=== PATIENT | female | born 1945 | race Caucasian/White ===

== ENCOUNTER 2021-01-17 14:00 | Outpatient (CLI) | payer BC ==
[2021-01-25] MEDS ORDERED: ASPI-992 PO (08:01)
== END 2021-01-17 23:59 | disposition home or self-care (01) ==
LOC: LAB 14:00
PROVIDERS: ATTEND Specialist
DX: Z01.812 Encounter for preprocedural laboratory examination (principal); Z20.822 Contact with and (suspected) exposure to COVID-19
CPT/HCPCS: C9803; U0003

== ENCOUNTER 2021-01-22 05:35 | Inpatient (IN) | payer BC, OTHER ==
[~2021-01-22] VITALS: Ht 165.1 cm; Wt 74.4 kg
[2021-01-22 06:52] LABS: BASOPHILS % (AUTO) 0.6 % (0.0-2.0); EOSINOPHILS % (AUTO) 3.7 % (0.0-6.0); HEMATOCRIT 41 % (33-45); HEMOGLOBIN 14.1 g/dL (11.5-14.8); LYMPHOCYTES # (AUTO) 1.5 K/uL (0.8-4.8); LYMPHOCYTES % (AUTO) 20.3 % (20.0-44.0); MEAN CORPUSCULAR HGB CONC 34 g/dl (31.0-36.0); MEAN CORPUSCULAR VOLUME 90 fL (82-100); MONOCYTES # (AUTO) 0.7 K/uL (0.1-1.30); MONOCYTES % (AUTO) 8.8 % (2.0-12.0); NEUTROPHILS % (AUTO) 66.6 % (43.0-81.0); PLATELET COUNT (AUTO) 272 K/uL (150-450); RED BLOOD CELL COUNT(AUTO) 4.58 MIL/uL (4.0-5.2); WHITE BLOOD COUNT (AUTO) 7.5 K/uL (4.3-11.0)
[2021-01-22] MEDS ORDERED: ROCURONIUM BROMIDE 50 MG/5 ML ONE (06:56)
[2021-01-22] MEDS ORDERED: HYDROMORPHONE INJ 2 MG/ML DISP.SYRIN ONE (06:56)
[2021-01-22] MEDS ORDERED: BUPIVACAINE 0.5 % PF 150 MG/30 ML VIAL ONE (07:12)
[2021-01-22] MEDS ORDERED: POLYMYXIN B SULFATE 500,000 UNITS ONE (07:12)
[2021-01-22 07:19] LABS: ALBUMIN 3.5 g/dL (3.4-5.0); BILIRUBIN,TOTAL 0.6 mg/dL (0.2-1.0); CALCIUM, SERUM 8.4 mg/dL (8.5-10.1); CREATININE 1.2 mg/dL (0.6-1.3); POTASSIUM 3.9 mmol/L (3.5-5.1); TOTAL PROTEIN, SERUM 7.3 g/dL (6.4-8.2)
[2021-01-22 08:00] LABS: BILIRUBIN,URINE NEGATIVE (NEGATIVE); COLOR,URINE YELLOW (YELLOW); LEUKOCYTE ESTERASE ,URINE SMALL (NEGATIVE); NITRITE, URINE NEGATIVE (NEGATIVE); PROTEIN,URINE NEGATIVE (NEGATIVE); UGLUCOSE NEGATIVE (NEGATIVE); UROBILINOGEN,URINE 0.2 EU/dL (0.2)
[2021-01-22] MEDS ORDERED: TRANEXAMIC ACID 3,000 MG in SODIUM CHLORIDE IRRIG SOLUTION 70 ML IR ONE (08:00)
[2021-01-22] MEDS ORDERED: HYDROMORPHONE 1 MG/1 ML DISP.SYRIN ONE ×2 (08:58→09:23)
[2021-01-22 09:33] LABS: BACTERIA,URINE Few /HPF (None Seen); SQUAMOUS EPITHELIAL CELL,UR Few /HPF (None Seen)
[2021-01-22 09:34] LABS: CALCIUM OXALATE CRYSTALS,UR Moderate /HPF (None Seen)
[2021-01-22] MEDS ORDERED: MAG HYDROX/AL HYDROX/SIMETH 30 ML UDC PO PRN ×2 (10:00→11:30)
[2021-01-22] MEDS ORDERED: MAGNESIUM HYDROXIDE 30 ML UDC PO PRN ×2 (10:00→11:30)
[2021-01-22] MEDS ORDERED: ONDANSETRON HCL/PF 4 MG/2 ML VIAL IV PRN (10:00)
[2021-01-22] MEDS ORDERED: HYDROMORPHONE 1 MG/1 ML DISP.SYRIN SQ PRN (10:00)
[2021-01-22] MEDS ORDERED: CLONIDINE HCL 0.1 MG TABLET PO PRN (10:00)
[2021-01-22] MEDS ORDERED: diphenhydrAMINE HCL 25 MG CAPSULE PO PRN (10:00)
--- NOTE | 2021-01-22 10:20 | NUR ---
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 PT IN SURGICAL SUIT THIS AM FOR LEFT HIP ARTHROPLASTY. VS- BP- 155/81, HR- 66 . RR- 18, T- 98.7, SATS 96% 2LPM PT SLEEPY, DENIES PAIN, DRESSING DRY INTACT TO LEFT HIP, ELEVATED LIMB W PILLOWS, MONITOR FOR INFECTION, COMFORT ASSIST . DR BARR NOTIFIED OF ADMISSION. SIDE RAILS UP, BED LOCKED, NUBIA LIGHT IN REACH. ICE CHIPS FLUIDS PROVIDED
--- NOTE | 2021-01-22 10:25 | NUR ---
MEDICAL BILLER NOTE- 75 Y/O FEMALE ADMITTED TO UNIT S/P- LEFT HIP ARTHROPLASTY. PT VS STABLE, ALLERGIES SULFA. FULL CODE. REGULAR DIET. ON FACE TRO FACE ASSESSMENT, PT IS SLEEPY AND EXPERIENCING NAUSEA. SOME PAIN STATED WELL WITH MOVEMENT OR DURING USE OF BEDPAN. LEFT HIP W DRY DRESSING INTACT, ICE PACK IN PLACE AND ABDUCTION PILLOW IN USE. COMPRESSION HOSE IN USE. LR INFUSING AT 100./HR TO IV SITE RT HAND. GAVE PT ICE AND WATER. SIDE RAILS UP, BED LOCKED, CALL LIGHT CLOSE. MONITOR.
[2021-01-22] MEDS ORDERED: ONDANSETRON HCL/PF 4 MG/2 ML VIAL IVP PRN (11:30)
[2021-01-22] MEDS ORDERED: ZOLPIDEM TARTRATE 5 MG TABLET PO PRN (11:30)
[2021-01-22] MEDS ORDERED: ZOFRAN 4mg/2ML IV PRN (11:30)
[2021-01-22] MEDS ORDERED: Z GUARD REMEDY 2 OZ OINT TP PRN (11:30)
[2021-01-22] MEDS ORDERED: SENOKOT 8.6 MG TABLET PO PRN (11:30)
[2021-01-22] MEDS ORDERED: AMBIEN 5 MG TABLET PO PRN (11:30)
[2021-01-22] MEDS ORDERED: DULCOLAX 10 MG/SUPP.RECT RC PRN (11:30)
[2021-01-22] MEDS ORDERED: ACETAMINOPHEN 325 MG TABLET PO PRN (11:30)
[2021-01-22] MEDS ORDERED: MAGN100T3 PO (11:44)
[2021-01-22] MEDS ORDERED: PRAS50CA PO (11:44)
[2021-01-22] MEDS ORDERED: ASCO100058 PO (11:44)
[2021-01-22] MEDS ORDERED: LEVO88TA5 PO (11:44)
[2021-01-22] MEDS ORDERED: CALC-343 PO (11:44)
[2021-01-22] MEDS ORDERED: POTA99TA14 PO (11:44)
[2021-01-22] MEDS ORDERED: CHOL100062 PO (11:44)
[2021-01-22] MEDS ORDERED: CALC0.253 PO (11:44)
[2021-01-22] MEDS ORDERED: MULT-1215 PO (11:44)
[2021-01-22] MEDS ORDERED: LACT1CAP71 PO (11:44)
[2021-01-22] MEDS ORDERED: BRIM5DRO2 LEFTEYE (11:49)
[2021-01-22] MEDS ORDERED: FOLI0.8T3 PO (11:49)
[2021-01-22] MEDS ORDERED: POLY15DR40 EACHEYE (11:49)
[2021-01-22] MEDS ORDERED: BIMA2.5D5 LEFTEYE (11:49)
[2021-01-22] MEDS: HYDROMORPHONE 1 MG/1 ML DISP.SYRIN IM/IV/SC PRN ×2 (12:24→23:16)
[2021-01-22 14:00] VITALS: BP 148/58
[2021-01-22] MEDS: ANCEF 1 G in IV D5W 50 ML IV SCH ×2 (16:50→23:16)
[2021-01-22 17:00] VITALS: BP 11/66
[2021-01-22] MEDS: DOCUSATE SODIUM 100 MG CAPSULE PO SCH (17:59)
--- NOTE | 2021-01-22 18:58 | NUR ---
RN CLOSING NOTE- PT IN BED, ABDUCTION PILLOW IN PLACE, AOX4, INTERACTIVE. DENIES PAIN , DENIES N&V, LR IVF AT 100/ HR. COMFORTABLE, CALL LIGHT IN REACH,. DRESSING DRY INTACT TO LEFT HIP. SIDE RAILS UP, BED LOCKED, CALL LIGHT IN REACH
--- NOTE | 2021-01-22 19:20 | NUR ---
MS RN OPENING NOTES: RECEIVED PATIENT IN BED, ASLEEP, EASILY AROUSABLE. A/O X4. NO S/S OF DISTRESS NOTED. CALL LIGHT WITHIN REACH. BED ALARM ON. BED IN LOWEST AND LOCKED POSITION WITH O2 AT 3L/MIN NASAL CANNULA. WITH ABDUCTION PILLOW IN PLACE, WITH DVT PUMPS ON BOTH LEGS. BEDREST.
[2021-01-22 20:00] VITALS: BP 114/71
[2021-01-22] MEDS: DRONABINOL (2.5 MG) 2.5 MG CAPSULE PO SCH (21:08)
[2021-01-22] MEDS: MENTHOL/CETYLPYRD (CEPACOL) 1 LOZ LOZENGE PO PRN (21:09)
[2021-01-22] MEDS: FAMOTIDINE (20 MG) 20 MG TABLET PO SCH (21:09)
[2021-01-22] MEDS: IV LR 1000 ML 1,000 ML IV PRN (21:12)
[2021-01-23] MEDS: MENTHOL/CETYLPYRD (CEPACOL) 1 LOZ LOZENGE PO PRN ×2 (01:47→13:12)
[2021-01-23] MEDS: oxyCODONE IR immediate release 5 MG PO PRN ×2 (01:47→18:54)
[2021-01-23] MEDS: HYDROMORPHONE 1 MG/1 ML DISP.SYRIN IM/IV/SC PRN ×3 (04:16→14:27)
[2021-01-23 06:33] LABS: CALCIUM, SERUM 7.4 mg/dL (8.5-10.1); CREATININE 1.1 mg/dL (0.6-1.3); MAGNESIUM 1.8 mg/dL (1.8-2.4); PHOSPHORUS 3.1 mg/dL (2.5-4.9); POTASSIUM 4.1 mmol/L (3.5-5.1)
[2021-01-23 06:46] LABS: THYROID STIMULATING HORMONE 1.024 uIU/mL (0.358-3.74)
--- NOTE | 2021-01-23 07:34 | NUR ---
MS RN OPENING NOTE RECEIVED PATIENT AWAKE IN BED. ALERT AND ORIENTED X 4. NO S/S OF DISTRESS NOTED. BREATHING IS EVEN AND UNLABORED. IV ACCESS RHAND#20 PATENET AND INTACT WITH LR RUNNING @100MLS/HR. SAFETY MEASURES MAINTAINED WITH BED LOCKED AT LOW POSITION AND SIDE RAILS UP X2. CALL LIGHT IS WITHIN REACH . WILL CONTINUE TO MONITOR THROUGHOUT SHIFT.
[2021-01-23 08:00] VITALS: BP 119/68
[2021-01-23] MEDS: DOCUSATE SODIUM 100 MG CAPSULE PO SCH ×2 (08:51→17:16)
[2021-01-23] MEDS: ASPIRIN 325 MG TABLET PO SCH (08:52)
[2021-01-23] MEDS: FAMOTIDINE (20 MG) 20 MG TABLET PO SCH ×2 (08:52→21:11)
[2021-01-23] MEDS: IV LR 1000 ML 1,000 ML IV PRN (09:25)
[2021-01-23 09:56] LABS: BASOPHILS % (AUTO) 0.1 % (0.0-2.0); EOSINOPHILS % (AUTO) 0.2 % (0.0-6.0); HEMATOCRIT 33 % (33-45); LYMPHOCYTES # (AUTO) 0.9 K/uL (0.8-4.8); LYMPHOCYTES % (AUTO) 7.5 % (20.0-44.0); MEAN CORPUSCULAR HGB CONC 34 g/dl (31.0-36.0); MEAN CORPUSCULAR VOLUME 90 fL (82-100); MONOCYTES # (AUTO) 1.2 K/uL (0.1-1.30); MONOCYTES % (AUTO) 9.7 % (2.0-12.0); NEUTROPHILS # (AUTO) 10.4 K/uL (1.8-8.9); NEUTROPHILS % (AUTO) 82.5 % (43.0-81.0); PLATELET COUNT (AUTO) 224 K/uL (150-450); RED BLOOD CELL COUNT(AUTO) 3.63 MIL/uL (4.0-5.2); WHITE BLOOD COUNT (AUTO) 12.6 K/uL (4.3-11.0)
[2021-01-23 16:00] VITALS: BP 117/61
--- NOTE | 2021-01-23 19:07 | NUR ---
MS RN CLOSING NOTE PATIENT IS RESTING BED, COMFORTABLY. NO S/S OF DISTRESS NOTED. BREATHING IS EVEN AND UNLABORED. ALL NEEDS MET THROUGHOUT SHIFT. SAFETY MEASURES MAINTAINED WITH BED LOCKED AT LOW POSITION AND SIDE RAILS UP X2. CALL LIGHT IS WITHIN REACH. WILL ENDORSE CONTINUITY OF CARE TO ONCOMING SHIFT.
--- NOTE | 2021-01-23 19:35 | NUR ---
MS RN OPENING NOTES RECEIVED PT IN BED, AWAKE, WATCHING TV. PT IS AOx4. ABLE TO MAKE NEEDS KNOWN. ON OXYGEN 3L/MIN VIA NASAL CANNULA AND TOLERATING WELL. NO SOB NOTED. NO S/SX OF RESPIRATORY DISTRESS NOTED. IV ACCESS IN R WRIST #20 SALINE LOCKED. IV IS INTACT, PATENT, AND FLUSHING WELL. SAFETY PRECAUTIONS IN PLACE: BED IN LOWEST, LOCKED POSITION, BRAKES ON, SIDERAILS UPx2. CALL LIGHT AND TABLE WITHIN REACH. WILL CONTINUE TO MONITOR.
[2021-01-23 20:00] VITALS: BP 108/68
[2021-01-23] MEDS: DRONABINOL (2.5 MG) 2.5 MG CAPSULE PO SCH (21:11)
--- NOTE | 2021-01-24 06:29 | NUR ---
MS RN CLOSING NOTES PT IN BED, AWAKE. PT IS AOx4. ABLE TO MAKE NEEDS KNOWN. ON OXYGEN 3L/MIN VIA NASAL CANNULA AND TOLERATING WELL. NO SOB NOTED. NO S/SX OF RESPIRATORY DISTRESS NOTED. IV ACCESS IN R WRIST #20 SALINE LOCKED. IV IS INTACT, PATENT, AND FLUSHING WELL. ALL NEEDS MET. PT KEPT CLEAN AND DRY. SAFETY PRECAUTIONS IN PLACE: BED IN LOWEST, LOCKED POSITION, BRAKES ON, SIDERAILS UPx2. CALL LIGHT AND TABLE WITHIN REACH. WILL ENDORSE TO ONCOMING SHIFT.
[2021-01-24 06:39] LABS: BASOPHILS % (AUTO) 0.2 % (0.0-2.0); EOSINOPHILS % (AUTO) 0.2 % (0.0-6.0); HEMATOCRIT 32 % (33-45); HEMOGLOBIN 10.7 g/dL (11.5-14.8); LYMPHOCYTES # (AUTO) 1.3 K/uL (0.8-4.8); LYMPHOCYTES % (AUTO) 9.9 % (20.0-44.0); MEAN CORPUSCULAR HGB CONC 34 g/dl (31.0-36.0); MEAN CORPUSCULAR VOLUME 91 fL (82-100); MONOCYTES # (AUTO) 1.3 K/uL (0.1-1.30); MONOCYTES % (AUTO) 9.8 % (2.0-12.0); NEUTROPHILS # (AUTO) 10.4 K/uL (1.8-8.9); NEUTROPHILS % (AUTO) 79.9 % (43.0-81.0); PLATELET COUNT (AUTO) 214 K/uL (150-450); WHITE BLOOD COUNT (AUTO) 13.1 K/uL (4.3-11.0)
[2021-01-24 07:07] LABS: CALCIUM, SERUM 8.1 mg/dL (8.5-10.1); CREATININE 1.1 mg/dL (0.6-1.3); POTASSIUM 3.8 mmol/L (3.5-5.1)
--- NOTE | 2021-01-24 07:30 | NUR ---
MS RN OPENING NOTES RECEIVED PT IN BED, AWAKE, AOx4. ON OXYGEN 3L/MIN VIA NASAL CANNULA AND TOLERATING WELL. NO SOB NOTED. NO S/SX OF RESPIRATORY DISTRESS NOTED. WITH IV ACCESS AT R WRIST #20 SALINE LOCKED. IV IS INTACT, PATENT, AND FLUSHING WELL. SAFETY PRECAUTIONS IN PLACE: BED IN LOWEST, LOCKED POSITION, BRAKES ON, SIDERAILS UPx2. CALL LIGHT AND TABLE WITHIN REACH. WILL CONTINUE TO MONITOR.
[2021-01-24 08:28] VITALS: BP 130/68
[2021-01-24] MEDS: DOCUSATE SODIUM 100 MG CAPSULE PO SCH ×2 (09:02→16:53)
[2021-01-24] MEDS: ASPIRIN 325 MG TABLET PO SCH (09:02)
[2021-01-24] MEDS: FAMOTIDINE (20 MG) 20 MG TABLET PO SCH ×2 (09:03→21:09)
[2021-01-24] MEDS: HYDROMORPHONE 1 MG/1 ML DISP.SYRIN IM/IV/SC PRN ×2 (10:04→18:31)
[2021-01-24 16:24] VITALS: BP 149/76
--- NOTE | 2021-01-24 18:36 | NUR ---
MS RN CLOSING NOTES PT IN BED, AWAKE, AOx4. ON OXYGEN 3L/MIN VIA NASAL CANNULA AND TOLERATING WELL. NO SOB NOTED. NO S/SX OF RESPIRATORY DISTRESS NOTED. WITH COMPLAINTS OF PAIN AT 7/10 PAIN SCALE. PAIN MEDS GIVEN. COMFORT MEASURES PROVIDED. WITH IV ACCESS AT R WRIST #20 SALINE LOCKED. IV IS INTACT, PATENT, AND FLUSHING WELL. SAFETY PRECAUTIONS IN PLACE: BED IN LOWEST, LOCKED POSITION, BRAKES ON, SIDERAILS UPx2. CALL LIGHT AND TABLE WITHIN REACH. WILL ENDORSE TO NEXT SHIFT FOR STEVE.
--- NOTE | 2021-01-24 19:58 | NUR ---
MS RN OPENING NOTES RECEIVED PT IN BED, AWAKE, WATCHING TV. PT IS AOx4. ABLE TO MAKE NEEDS KNOWN. ON OXYGEN 3L/MIN VIA NASAL CANNULA AND TOLERATING WELL. NO SOB NOTED. NO S/SX OF RESPIRATORY DISTRESS NOTED. IV ACCESS IN R WRIST #20 SALINE LOCKED. IV IS INTACT, PATENT, AND FLUSHING WELL. NO COMPLAINTS OF PAIN AT THIS TIME. SAFETY PRECAUTIONS IN PLACE: BED IN LOWEST, LOCKED POSITION, BRAKES ON, SIDERAILS UPx2. CALL LIGHT AND TABLE WITHIN REACH. WILL CONTINUE TO MONITOR.
[2021-01-24 20:00] VITALS: BP 132/72
[2021-01-24] MEDS: DRONABINOL (2.5 MG) 2.5 MG CAPSULE PO SCH (21:09)
[2021-01-25] MEDS: HYDROMORPHONE 1 MG/1 ML DISP.SYRIN IM/IV/SC PRN (01:59)
--- NOTE | 2021-01-25 02:19 | NUR ---
ADMINISTERED DILAUDID FOR PAIN PER MD ORDER @ 0159. VITAL SIGNS STABLE. WILL CONTINUE TO MONITOR.
--- NOTE | 2021-01-25 06:17 | NUR ---
MS RN CLOSING NOTES PT IN BED, ASLEEP, AWAKENS TO VERBAL STIMULI. PT IS AOx4. ABLE TO MAKE NEEDS KNOWN. ON OXYGEN 3L/MIN VIA NASAL CANNULA AND TOLERATING WELL. NO SOB NOTED. NO S/SX OF RESPIRATORY DISTRESS NOTED. IV ACCESS IN R WRIST #20 SALINE LOCKED. IV IS INTACT, PATENT, AND FLUSHING WELL. TREATED PAIN ONCE DURING SHIFT. ALL NEEDS MET. PT KEPT CLEAN AND DRY. SAFETY PRECAUTIONS IN PLACE: BED IN LOWEST, LOCKED POSITION, BRAKES ON, SIDERAILS UPx2. CALL LIGHT AND TABLE WITHIN REACH. WILL ENDORSE TO ONCOMING SHIFT.
[2021-01-25 06:40] LABS: BASOPHILS % (AUTO) 0.3 % (0.0-2.0); EOSINOPHILS % (AUTO) 1.5 % (0.0-6.0); HEMATOCRIT 33 % (33-45); HEMOGLOBIN 11.4 g/dL (11.5-14.8); LYMPHOCYTES # (AUTO) 1.3 K/uL (0.8-4.8); LYMPHOCYTES % (AUTO) 12.1 % (20.0-44.0); MEAN CORPUSCULAR HGB CONC 34 g/dl (31.0-36.0); MEAN CORPUSCULAR VOLUME 91 fL (82-100); MONOCYTES # (AUTO) 0.9 K/uL (0.1-1.30); MONOCYTES % (AUTO) 8.5 % (2.0-12.0); NEUTROPHILS # (AUTO) 8.4 K/uL (1.8-8.9); NEUTROPHILS % (AUTO) 77.6 % (43.0-81.0); PLATELET COUNT (AUTO) 244 K/uL (150-450); RED BLOOD CELL COUNT(AUTO) 3.68 MIL/uL (4.0-5.2); WHITE BLOOD COUNT (AUTO) 10.8 K/uL (4.3-11.0)
[2021-01-25 06:44] LABS: CALCIUM, SERUM 8.5 mg/dL (8.5-10.1); POTASSIUM 3.7 mmol/L (3.5-5.1)
--- NOTE | 2021-01-25 07:55 | NUR ---
MS/RN OPENING NOTES RECEIVED PATIENT ON BED AWAKE ALERT AND ORIENTED X4. PATIENT IS ON ROOM AIR. PATIENT IN NO APPARENT RESPIRATORY DISTRESS NOTED. NO COMPLAINED OF PAIN NOTED. WILL CONTINUE TO MONITOR.
[2021-01-25 08:00] VITALS: BP 143/69
[2021-01-25] MEDS ORDERED: ASPI-992 PO (08:01)
[2021-01-25] MEDS: DOCUSATE SODIUM 100 MG CAPSULE PO SCH (08:28)
[2021-01-25] MEDS: FAMOTIDINE (20 MG) 20 MG TABLET PO SCH (08:28)
[2021-01-25] MEDS: ASPIRIN 325 MG TABLET PO SCH (08:28)
[2021-01-25] MEDS: oxyCODONE IR immediate release 5 MG PO PRN (08:32)
--- NOTE | 2021-01-25 15:56 | NUR ---
RN NOTES PATIENT IS ALERT AND ORIENTED X4. PATIENT IS ON ROOM AIR SATURATION 96%. PATIENT IN NO APPARENT RESPIRATORY DISTRESS NOTED. NO COMPLAINED OF PAIN NOTED AT THIS TIME. SEEN AND EXAMINED BY MD WITH ORDERS MADE AND CARRIED OUT. ALL DUE MEDICATIONS WAS GIVEN. DISCHARGED INSTRUCTIONS WAS GIVEN AND PATIENT VERBALIZED UNDERSTANDING. 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
== END 2021-01-25 15:42 | disposition home health service (06) | DRG 469 ==
LOC: DS 05:35 → MED 10:13
PROVIDERS: ADMIT Family Medicine; ATTEND Family Medicine
PROC: 0SRB0JZ Replacement of Left Hip Joint with Synthetic Substitute, Open Approach (ICD-10-PCS; principal; 2021-01-22)
DX: M16.12 Unilateral primary osteoarthritis, left hip (principal); N17.0 Acute kidney failure with tubular necrosis; E89.0 Postprocedural hypothyroidism; Z85.3 Personal history of malignant neoplasm of breast; D72.829 Elevated white blood cell count, unspecified; R73.9 Hyperglycemia, unspecified; Z90.710 Acquired absence of both cervix and uterus
CPT/HCPCS: 36415; 80048-TC; 80053-TC; 80061-TC; 81001; 83735-TC; 84100-TC; 84443-TC; 85025-TC; 85730-TC; 86850-TC; 87081-TC; 87086-TC; 88305-TC; 88311-TC; 97112-TC; 97116-TC; 97530-TC; A4217; A6209; A6402; C1776; G0378; J0690; J1100; J1170; J1885; J2405; J2704; J3490; J7030; J7060; J7120; Q0167